=== PATIENT | female | born 1945 | race Caucasian/White ===

== ENCOUNTER 2020-07-09 13:36 | Emergency (ER) | payer MEDICARE, OTHER, SELFPAY ==
[2020-07-09 13:50] VITALS: BP 147/82; PULSE 69; RESP 18; TEMP 36.7; O2SAT 92; BMI 23.9
--- NOTE | 2020-07-09 15:06 | W.ED.FALL ---
HPI - Fall General: Chief Complaint: Fall Stated Complaint: FALL, INJURY TO FACE/HEAD, SPIT BLOOD Time Seen by Provider: 07/09/20 15:05 History of Present Illness: HPI Narrative: Patient is a 75-year-old female comes to the ED after having a fall. Patient was walking out to her vehicle and she ambulates with a walking cane. She says she thinks she got her feet tangled up in the grass and the ground was, sloped upward and she fell. She is unsure if she lost consciousness or not. She was able to get back up on her own after about 20 minutes. After fall she has headache right sided facial pain, neck pain and mid and lower back pain. She has right periorbital swelling and ecchymosis and right maxillary ecchymosis and swelling as well. She also reports having a headache that starts in her forehead and radiates to the back of her head and down her neck. Denies any vision changes, numbness or tingling down extremities or weakness to extremities. Patient does have a past medical history of osteoporosis, multiple concussions and multiple back surgeries. She rates her current pain a 6 out of 10. Patient says she is never had a tetanus shot and does not want to get one today. Patient denies being on any blood thinners. Associated symptoms-after fall: Reports headache(s) and neck pain; Denies abdominal pain, chest pain or hematuria Review of Systems Const: Denies: fever(s), chills or fatigue Eyes: Reports: other (Right periorbital swelling.); Denies: change in vision or eye discomfort ENMT: Reports: sinus pain (Right maxillary region of face); Denies: throat pain, odynophagia, nasal discharge or nasal congestion Card: Denies: chest pain, palpitations, edema, swelling of feet/ankles, dyspnea on exertion or orthopnea Resp: Denies: dyspnea, productive cough or non-productive cough GI: Denies: abdominal pain, nausea, vomiting, diarrhea, constipation or hematochezia : Denies: flank pain, dysuria or hematuria Musc: Reports: neck pain, back pain and extremity pain (Right knee); Denies: extremity swelling Skin/Breast: Denies: rash or new lesions Neuro: Reports: headache(s); Denies: numbness in extremities or weakness in extremities PFSH ED PFSH: Medical History History of multiple concussions Social History Smoking and tobacco status: never smoked Alcohol intake: never History of recent travel: No Physical Exam Const: COMMON NORMALS: no acute distress, patient oriented x3, healthy appearing and alert GENERAL APPEARANCE: cooperative and comfortable HENMT: COMMON NORMALS: normocephalic HEAD & SCALP: normocephalic FACE & SINUS: ecchymosis on the right maxilla, edema on the right maxilla and Facial tenderness on exam of face and sinuses on the right maxilla MOUTH: Normal oral and palatal mucosa present THROAT: posterior oropharynx normal and uvula midline Eye: COMMON NORMALS: Equal, round and reactive pupils present, EOMs intact bilaterally, conjunctivae normal and normal visual [place] by confrontation PERIORBITAL: periorbital findings abnormal positive right periorbital swelling, periorbital tenderness and periorbital ecchymosis CONJUNCTIVA: Yes conjunctivae normal PUPIL: Yes Equal, round and reactive pupils present Neck/C-Spine: COMMON NORMALS: supple GENERAL: Yes normal visual inspection Resp: COMMON NORMALS: normal respiratory effort, No retractions, No use of accessory muscles and clear to auscultation bilaterally AUSCULTATION: clear to auscultation bilaterally Cardio: COMMON NORMALS: regular rate, regular rhythm, S1 normal heart sound present, S2 normal heart sound present, No gallops present (Cardio), No clicks present (Cardio), No murmurs present (Cardio) and Peripheral pulses 2+ throughout RATE: regular rate RHYTHM: regular rhythm HEART SOUNDS: S1 normal heart sound present and S2 normal heart sound present PERIPHERAL PULSES: Peripheral pulses 2+ throughout GI: COMMON NORMALS: Normal to inspection, nondistended, normoactive bowel sounds present, Soft to palpation, non-tender and no masses PALPATION: Yes Soft to palpation : COMMON NORMALS: Yes no CVA tenderness BLADDER/KIDNEY EXAM: Yes no CVA tenderness Back/Pelvis: COMMON NORMALS: no CVA tenderness Extremity: NARRATIVE EXTREMITY EXAM: Patient has some superficial abrasions to right knee. GENERAL: Yes normal exam except as noted Neuro: COMMON NORMALS: patient oriented x3, CN's II-XII intact bilaterally, moves all extremities, no focal motor deficits and no sensory deficits noted SENSORIUM/ORIENTATION: Yes alert SPEECH: speech normal SENSORY EXAM: Yes extremities (intact) MOTOR EXAM: 5/5 motor strength present throughout Skin: GENERAL SKIN EXAM: dry skin TRAUMA: abrasion (Superficial abrasions on right knee.) Course Vital Signs: Vital signs: Vital Signs Temperature 98.0 F 07/09/20 16:59 Pulse Rate 69 07/09/20 13:50 Respiratory Rate 18 07/09/20 16:59 Blood Pressure 147/82 07/09/20 13:50 Pulse Oximetry 92 07/09/20 16:59 MDM - Fall MDM Narrative: Medical decision making narrative: Patient is a 70 female comes to the ED after having a fall. Patient has right maxillary facial edema and ecchymosis along with right periorbital edema and ecchymosis. She is complaining of having headache, neck, upper and lower back pain. She also says she is having some mild right knee pain but says that is chronic. Patient's neuro exam was normal but visible ecchymosis and edema to maxillary region and right periorbital region of face. Patient is not currently on any blood thinners and she is unsure if she had any loss of consciousness when she fell. Patient was able to get up on her own after fall. CT of head, CT face, CT cervical, thoracic and lumbar spine all showed no acute fractures or findings. Right knee showed no acute fractures but osteoarthritis present in right knee. Patient diagnosed with a fall, contusion of face, musculoskeletal back pain and headache. She was told to rest and ice sore areas and to take Tylenol for pain. Return to ED precautions given. Follow-up with PCP in 7 to 10 days. Patient understood agree with plan. Imaging Data^: CT Head: Attestation: I personally reviewed and interpreted this imaging study as follows: Radiologist's impression: [address] [place] [address] CT Scan Report Signed Patient: Tamara Aparicio Unit #: [id number] : 1945 Age/Sex: 75 / F ADM Date: 07/09/20 Loc: ER Room/Bed: Attending Dr: Ordering Provider/Ordering MD: Beto Olguin Date of Service: 07/09/20 Procedure(s): CT head wo con* [id number] Accession Number(s): [id number] Report Number: [id number] PROCEDURE INFORMATION: Exam: CT Head Without Contrast Exam date and time: 07/09/2020 3:25 PM Age: 75 years old Clinical indication: Injury or trauma; Fall; Blunt trauma (contusions or hematomas); Additional info: Fall with head injury TECHNIQUE: Imaging protocol: Computed tomography of the head without contrast. Radiation optimization: All CT scans at this facility use at least one of these dose optimization techniques: automated exposure control; mA and/or kV adjustment per patient size (includes targeted exams where dose is matched to clinical indication); or iterative reconstruction. COMPARISON: No relevant prior studies available. RADIATION DOSE METRICS: Total DLP (mGy-cm): 732.41 FINDINGS: Brain: Mild atrophy and mild white matter chronic microvascular changes are noted. No hemorrhage or evidence of acute infarction is seen. Cerebral ventricles: No ventriculomegaly. Bones/joints: Unremarkable. No acute fracture. Paranasal sinuses: Mild right maxillary sinusitis is appreciated. Mastoid air cells: Visualized mastoid air cells are well aerated. Soft tissues: Mild right infraorbital soft tissue swelling is noted CT/CT head wo con* [id number] IMPRESSION: No acute intracranial abnormality. Mild sinusitis. Radiation Dose CTDIVOL = (mGy): DLP = 732.41 (mGy-cm) Dictated By: Aki Dyson MD Signed By: Aki Dyson MD Signed Date/Time: 07/09/201612 DD/ [address]: Attestation: I personally reviewed and interpreted this imaging study as follows: Radiologist's impression: [address] [address] [address] Scan Report Signed Patient: Tamara Aparicio Unit #: [id number] : 1945 Age/Sex: 75 / F ADM Date: 07/09/20 Loc: ER Room/Bed: Attending Dr: Ordering Provider/Ordering MD: Beto Olguin Date of Service: 07/09/20 Procedure(s): CT thoracic spin wo con* [id number] Accession Number(s): [id number] Report Number: [id number] PROCEDURE INFORMATION: Exam: CT Thoracic Spine Without Contrast Exam date and time: 07/09/2020 3:25 PM Age: 75 years old Clinical indication: Injury or trauma; Blunt trauma (contusions or hematomas); Prior surgery; Surgery date: 6+ months; Surgery type: Multiple; Patient HX: Fall from standing; Additional info: Fall with mid back pain TECHNIQUE: Imaging protocol: Computed tomography images of the thoracic spine without contrast. Radiation optimization: All CT scans at this facility use at least one of these dose optimization techniques: automated exposure control; mA and/or kV adjustment per patient size (includes targeted exams where dose is matched to clinical indication); or iterative reconstruction. COMPARISON: No relevant prior studies available. RADIATION DOSE METRICS: Total DLP (mGy-cm): 654.05 FINDINGS: Vertebrae: Osteoporosis. Posterior fusion of the thoracolumbar spine. Pre-existing compression fracture deformities throughout thoracic spine. Multiple thoracic spine levels demonstrate prior vertebral augmentation changes from treated fractures T4 through T9 levels. Diffuse spondyloarthropathy changes of disc spaces and facet joints. Other bones/joints: Surgical hardware appears intact. Multiple old, healed bilateral posterior rib fractures. Mediastinum: Nonenlarged calcified granulomas subcarinal space of mediastinum. Gallbladder and bile ducts: Cholecystectomy. Vasculature: Scattered atherosclerosis. Soft tissues: No acute paraspinal soft tissue hematoma. CT/CT thoracic spin wo con* [id number] IMPRESSION: 1. No convincing CT scan evidence of acute thoracic spine fracture. 2. Extensive posterior fusion of the thoracolumbar spine bridging multiple treated thoracic spine vertebral compression fracture deformities. Radiation Dose CTDIVOL = (mGy): DLP = 654.05 (mGy-cm) Dictated By: Jesus Manuel Beyer Signed By: Jesus Manuel Beyer Signed Date/Time: 07/09/20 1629 DD/ [address] [address] [address] Scan Report Signed Patient: Tamara Aparicio Unit #: [id number] : 1945 Age/Sex: 75 / F ADM Date: 07/09/20 Loc: ER Room/Bed: Attending Dr: Ordering Provider/Ordering MD: Beto Olguin Date of Service: 07/09/20 Procedure(s): CT lumbar spine wo con* [id number] Accession Number(s): [id number] Report Number: [id number] PROCEDURE INFORMATION: Exam: CT Lumbar Spine Without Contrast Exam date and time: 07/09/2020 3:25 PM Age: 75 years old Clinical indication: Injury or trauma; Blunt trauma (contusions or hematomas); Prior surgery; Surgery date: 6+ months; Surgery type: Multiple; Patient HX: Fall from standing; Additional info: Fall with back pain TECHNIQUE: Imaging protocol: Computed tomography images of the lumbar spine without contrast. Radiation optimization: All CT scans at this facility use at least one of these dose optimization techniques: automated exposure control; mA and/or kV adjustment per patient size (includes targeted exams where dose is matched to clinical indication); or iterative reconstruction. COMPARISON: No relevant prior studies available. RADIATION DOSE METRICS: Total DLP (mGy-cm): 1268.61 FINDINGS: Vertebrae: Thoracolumbar spine posterior fusion visible from T12 through S1. No acute compression fracture identified. Lumbar spine alignment is anatomic. Multilevel lumbar spine laminectomy changes. Severe disc disease at each level. Other bones/joints: Osteoporosis. No surgical hardware complication. Gallbladder and bile ducts: Cholecystectomy. Vasculature: Diffuse atherosclerosis. Soft tissues: Lumbar paraspinal muscles are unremarkable. CT/CT lumbar spine wo con* [id number] IMPRESSION: Negative for acute lumbar spine abnormality. Radiation Dose CTDIVOL = (mGy): DLP = 1268.61 (mGy-cm) Dictated By: Jesus Manuel Beyer Signed By: Jesus Manuel Beyer Signed Date/Time: 07/09/20 1631 DD/ 1629 [place] [address] CT Scan Report Signed Patient: Tamara Aparicio Unit #: [id number] : 1945 Age/Sex: 75 / F ADM Date: 07/09/20 Loc: ER Room/Bed: Attending Dr: Ordering Provider/Ordering MD: Beto Olguin Date of Service: 07/09/20 Procedure(s): CT cervical spin wo con* [id number] Accession Number(s): [id number] Report Number: [id number] PROCEDURE INFORMATION: Exam: CT Cervical Spine Without Contrast Exam date and time: 07/09/2020 3:25 PM Age: 75 years old Clinical indication: Injury or trauma; Fall; Blunt trauma; Prior surgery; Additional info: Fall with neck pain TECHNIQUE: Imaging protocol: Computed tomography images of the cervical spine without contrast. Radiation optimization: All CT scans at this facility use at least one of these dose optimization techniques: automated exposure control; mA and/or kV adjustment per patient size (includes targeted exams where dose is matched to clinical indication); or iterative reconstruction. COMPARISON: No relevant prior studies available. RADIATION DOSE METRICS: Total DLP (mGy-cm): 1268.61 FINDINGS: Mild to moderate degenerative changes are observed in the cervical spine. No cervical spine fracture is visualized. Mild anterolisthes iseis of C5 over C6 and C7 over T1 are noted. Posterior spinal fusion hardware is observed in the upper thoracic spine (partially imaged). CT/CT cervical spin wo con* [id number] IMPRESSION: No cervical spine fracture. Radiation Dose CTDIVOL = (mGy): DLP = 1268.61 (mGy-cm) Dictated By: Aki Dyson MD Signed By: Aki Dyson MD Signed Date/Time: 07/09/201614 DD/ [address] [address] [address] Scan Report Signed Patient: Tamara Aparicio Unit #: [id number] : 1945 Age/Sex: 75 / F ADM Date: 07/09/20 Loc: ER Room/Bed: Attending Dr: Ordering Provider/Ordering MD: Beto Olguin Date of Service: 07/09/20 Procedure(s): CT facial bones wo con* [id number] Accession Number(s): [id number] Report Number: [id number] PROCEDURE INFORMATION: Exam: CT Maxillofacial Without Contrast Exam date and time: 07/09/2020 3:25 PM Age: 75 years old Clinical indication: Injury or trauma; Fall; Blunt trauma (contusions or hematomas); Orbit/periorbital; Right; Additional info: Fall with right orbital ecchymosis and swelling TECHNIQUE: Imaging protocol: Computed tomography images of the face without contrast. Radiation optimization: All CT scans at this facility use at least one of these dose optimization techniques: automated exposure control; mA and/or kV adjustment per patient size (includes targeted exams where dose is matched to clinical indication); or iterative reconstruction. COMPARISON: No relevant prior studies available. RADIATION DOSE METRICS: Total DLP (mGy-cm): 683.67 FINDINGS: Orbital cavity: Orbits are normal. Globes are unremarkable. Bones/joints: No acute fracture. Paranasal sinuses: Mild right maxillary sinusitis is noted. Soft tissues: Mild right infraorbital soft tissue swelling is appreciated. CT/CT facial bones wo con* [id number] IMPRESSION: No facial bone fracture. Radiation Dose CTDIVOL = (mGy): DLP = 683.67 (mGy-cm) Dictated By: Aki Dyson MD Signed By: Aki Dyson MD Signed Date/Time: 07/09/201616 DD/ 14 Discharge Plan Discharge Patient Disposition: Home Clinical Impression: Musculoskeletal back pain Fall as cause of accidental injury at home as place of occurrence Qualifiers: Encounter type: initial encounter Qualified Code(s): W19.XXXA - Unspecified fall, initial encounter Contusion of face Qualifiers: Encounter type: initial encounter Qualified Code(s): S00.83XA - Contusion of other part of head, initial encounter Headache Qualifiers: Headache type: unspecified Headache chronicity pattern: acute headache Intractability: not intractable Qualified Code(s): R51.9 - Headache, unspecified Condition: Stable Prescriptions: No Action omeprazole magnesium 20 mg tablet,delayed release (DR/EC) 20 mg PO DAILY RF: 0 simvastatin 40 mg tablet 40 mg PO BEDTIME RF: 0 diazepam 10 mg tablet 10 mg PO BID PRN (Reason: Anxiety) RF: 0 oxycodone-acetaminophen 5-325 mg tablet See Rx Instructions .ROUTE .COMPLEX RF: 0 Aspir-81 81 mg Tablet,Delayed Release (Dr/Ec) 81 mg PO BEDTIME RF: 0 levothyroxine 25 mcg tablet 25 mcg PO QAM RF: 0 Caltrate 600 600 mg calcium (1,500 mg) Tablet 600 mg PO DAILY RF: 0 Centrum Silver Women 8 mg iron-400 mcg-300 mcg Tablet 1 tab PO DAILY RF: 0 Vitamin C 1 tab PO DAILY RF: 0 Vitamin D3 1 cap PO DAILY RF: 0 Discharge Orders: Discharge ED (Routine); Ordered 07/09/20 Ordered By: Beto Olguin Referrals: Irma Jessica MD [Primary Care Provider] - Discharge Diet: Regular Discharge Activity: Increase activity as tolerated Patient Instructions: Opioid Safety Activity Restrictions/Additional Instructions: Follow-up with medical provider as directed in 7 to 10 days for reevaluation. Continue taking all home medications as prescribed. Apply cold pack on face to help with swelling. Take Tylenol for pain. Return to the ER or your medical provider if condition worsens. Please read and understand discharge instructions. If any questions, please ask. Coding Level of Care Code ED Master Control Engineer for Abraham Piedra Exam Comprehensive
--- NOTE | 2020-07-09 15:18 | CTR_ITS ---
PROCEDURE INFORMATION: Exam: CT Maxillofacial Without Contrast Exam date and time: 07/09/2020 3:25 PM Age: 75 years old Clinical indication: Injury or trauma; Fall; Blunt trauma (contusions or hematomas); Orbit/periorbital; Right; Additional info: Fall with right orbital ecchymosis and swelling TECHNIQUE: Imaging protocol: Computed tomography images of the face without contrast. Radiation optimization: All CT scans at this facility use at least one of these dose optimization techniques: automated exposure control; mA and/or kV adjustment per patient size (includes targeted exams where dose is matched to clinical indication); or iterative reconstruction. COMPARISON: No relevant prior studies available. RADIATION DOSE METRICS: Total DLP (mGy-cm): 683.67 FINDINGS: Orbital cavity: Orbits are normal. Globes are unremarkable. Bones/joints: No acute fracture. Paranasal sinuses: Mild right maxillary sinusitis is noted. Soft tissues: Mild right infraorbital soft tissue swelling is appreciated. CT/CT facial bones wo con* [id number] IMPRESSION: No facial bone fracture. Radiation Dose CTDIVOL = (mGy): DLP = 683.67 (mGy-cm)
--- NOTE | 2020-07-09 15:18 | CTR_ITS ---
PROCEDURE INFORMATION: Exam: CT Lumbar Spine Without Contrast Exam date and time: 07/09/2020 3:25 PM Age: 75 years old Clinical indication: Injury or trauma; Blunt trauma (contusions or hematomas); Prior surgery; Surgery date: 6+ months; Surgery type: Multiple; Patient HX: Fall from standing; Additional info: Fall with back pain TECHNIQUE: Imaging protocol: Computed tomography images of the lumbar spine without contrast. Radiation optimization: All CT scans at this facility use at least one of these dose optimization techniques: automated exposure control; mA and/or kV adjustment per patient size (includes targeted exams where dose is matched to clinical indication); or iterative reconstruction. COMPARISON: No relevant prior studies available. RADIATION DOSE METRICS: Total DLP (mGy-cm): 1268.61 FINDINGS: Vertebrae: Thoracolumbar spine posterior fusion visible from T12 through S1. No acute compression fracture identified. Lumbar spine alignment is anatomic. Multilevel lumbar spine laminectomy changes. Severe disc disease at each level. Other bones/joints: Osteoporosis. No surgical hardware complication. Gallbladder and bile ducts: Cholecystectomy. Vasculature: Diffuse atherosclerosis. Soft tissues: Lumbar paraspinal muscles are unremarkable. CT/CT lumbar spine wo con* [id number] IMPRESSION: Negative for acute lumbar spine abnormality. Radiation Dose CTDIVOL = (mGy): DLP = 1268.61 (mGy-cm)
--- NOTE | 2020-07-09 15:18 | CTR_ITS ---
PROCEDURE INFORMATION: Exam: CT Cervical Spine Without Contrast Exam date and time: 07/09/2020 3:25 PM Age: 75 years old Clinical indication: Injury or trauma; Fall; Blunt trauma; Prior surgery; Additional info: Fall with neck pain TECHNIQUE: Imaging protocol: Computed tomography images of the cervical spine without contrast. Radiation optimization: All CT scans at this facility use at least one of these dose optimization techniques: automated exposure control; mA and/or kV adjustment per patient size (includes targeted exams where dose is matched to clinical indication); or iterative reconstruction. COMPARISON: No relevant prior studies available. RADIATION DOSE METRICS: Total DLP (mGy-cm): 1268.61 FINDINGS: Mild to moderate degenerative changes are observed in the cervical spine. No cervical spine fracture is visualized. Mild anterolisthes iseis of C5 over C6 and C7 over T1 are noted. Posterior spinal fusion hardware is observed in the upper thoracic spine (partially imaged). CT/CT cervical spin wo con* [id number] IMPRESSION: No cervical spine fracture. Radiation Dose CTDIVOL = (mGy): DLP = 1268.61 (mGy-cm)
--- NOTE | 2020-07-09 15:18 | CTR_ITS ---
PROCEDURE INFORMATION: Exam: CT Thoracic Spine Without Contrast Exam date and time: 07/09/2020 3:25 PM Age: 75 years old Clinical indication: Injury or trauma; Blunt trauma (contusions or hematomas); Prior surgery; Surgery date: 6+ months; Surgery type: Multiple; Patient HX: Fall from standing; Additional info: Fall with mid back pain TECHNIQUE: Imaging protocol: Computed tomography images of the thoracic spine without contrast. Radiation optimization: All CT scans at this facility use at least one of these dose optimization techniques: automated exposure control; mA and/or kV adjustment per patient size (includes targeted exams where dose is matched to clinical indication); or iterative reconstruction. COMPARISON: No relevant prior studies available. RADIATION DOSE METRICS: Total DLP (mGy-cm): 654.05 FINDINGS: Vertebrae: Osteoporosis. Posterior fusion of the thoracolumbar spine. Pre-existing compression fracture deformities throughout thoracic spine. Multiple thoracic spine levels demonstrate prior vertebral augmentation changes from treated fractures T4 through T9 levels. Diffuse spondyloarthropathy changes of disc spaces and facet joints. Other bones/joints: Surgical hardware appears intact. Multiple old, healed bilateral posterior rib fractures. Mediastinum: Nonenlarged calcified granulomas subcarinal space of mediastinum. Gallbladder and bile ducts: Cholecystectomy. Vasculature: Scattered atherosclerosis. Soft tissues: No acute paraspinal soft tissue hematoma. CT/CT thoracic spin wo con* [id number] IMPRESSION: 1. No convincing CT scan evidence of acute thoracic spine fracture. 2. Extensive posterior fusion of the thoracolumbar spine bridging multiple treated thoracic spine vertebral compression fracture deformities. Radiation Dose CTDIVOL = (mGy): DLP = 654.05 (mGy-cm)
--- NOTE | 2020-07-09 15:18 | CTR_ITS ---
PROCEDURE INFORMATION: Exam: CT Head Without Contrast Exam date and time: 07/09/2020 3:25 PM Age: 75 years old Clinical indication: Injury or trauma; Fall; Blunt trauma (contusions or hematomas); Additional info: Fall with head injury TECHNIQUE: Imaging protocol: Computed tomography of the head without contrast. Radiation optimization: All CT scans at this facility use at least one of these dose optimization techniques: automated exposure control; mA and/or kV adjustment per patient size (includes targeted exams where dose is matched to clinical indication); or iterative reconstruction. COMPARISON: No relevant prior studies available. RADIATION DOSE METRICS: Total DLP (mGy-cm): 732.41 FINDINGS: Brain: Mild atrophy and mild white matter chronic microvascular changes are noted. No hemorrhage or evidence of acute infarction is seen. Cerebral ventricles: No ventriculomegaly. Bones/joints: Unremarkable. No acute fracture. Paranasal sinuses: Mild right maxillary sinusitis is appreciated. Mastoid air cells: Visualized mastoid air cells are well aerated. Soft tissues: Mild right infraorbital soft tissue swelling is noted CT/CT head wo con* [id number] IMPRESSION: No acute intracranial abnormality. Mild sinusitis. Radiation Dose CTDIVOL = (mGy): DLP = 732.41 (mGy-cm)
--- NOTE | 2020-07-09 15:23 | XRR_ITS ---
PROCEDURE INFORMATION: Exam: XR Right Knee Exam date and time: 07/09/2020 3:25 PM Age: 75 years old Clinical indication: Injury or trauma; Fall; Blunt trauma; Knee; Right; Additional info: Fall with right knee pain TECHNIQUE: Imaging protocol: XR Right knee. Views: 3 views. COMPARISON: No relevant prior studies available. FINDINGS: Bones/joints: Severe diffuse arthritis. No fracture. Unremarkable alignment. Calcified joint bodies posteriorly. Demineralized bones. Soft tissues: Periarticular soft tissues unremarkable. Vasculature: Scattered atherosclerotic wall plaque. XR/XR knee RT 3V* [id number] IMPRESSION: Negative for acute right knee abnormality.
[2020-07-09 16:59] VITALS: RESP 18; TEMP 36.7; O2SAT 92
== END 2020-07-09 17:00 | disposition home or self-care (01) ==
PROVIDERS: Emergency Provider Physician Assistant; PCP Family Medicine
DX: R51.9 Headache, unspecified (principal); S00.83XA Contusion of other part of head, initial encounter; M54.9 Dorsalgia, unspecified; Z79.82 Long term (current) use of aspirin; W01.0XXA Fall on same level from slipping, tripping and stumbling without subsequent striking against object, initial encounter
CPT/HCPCS: 70450; 70486; 72125; 72128; 72131; 73562; 99283